=== PATIENT | male | born 1980 | race Two or more races ===

== ENCOUNTER → 2024-04-29 | Emergency (ER) | payer OTHER ==
[~2024-04-29] VITALS: Ht 172.7 cm; Wt 68.0 kg
[~2024-04-29] MED LIST: CEFTRIAXONE SODIUM 1,000 MG VIAL IM STA; KETOROLAC TROMETHAMINE 30 MG VIAL IM STA; KETOROLAC TROMETHAMINE 60 MG VIAL IM ONE; KETOROLAC TROMETHAMINE 60 MG VIAL IM SCH; KETOROLAC TROMETHAMINE 60 MG VIAL IM STA; TETANUS & DIPHTHERIA TOX,ADULT 0.5 ML VIAL IM STA; ZOLOFT20 MG/1 ML PO
[2024-04-29 11:57] LABS: HEMATOCRIT 41.1 % (39.0-48.0); HEMOGLOBIN 13.9 g/dL (13-16.00); MEAN CELL VOLUME 89.9 fL (80.0-100.00); MEAN CORPUSCULAR HEMOGLOBIN 30.3 pg (27.00-32.0); MEAN CORPUSCULAR HGB CONC 33.7 g/dl (32.0-36.0); PLATELET COUNT 289 K/uL (150-450); RED BLOOD COUNT 4.58 M/uL (4.00-6.00); RED CELL DISTRIBUTION WIDTH 16.2 % (11.5-14.5)
[2024-04-29 12:07] LABS: URINE APPEARANCE Clear; URINE BILIRRUBIN Moderate (NEGATIVE); URINE BLOOD Negative; URINE COLOR Dark Yellow; URINE GLUCOSE Negative (NEGATIVE); URINE LEUKOCYTE Trace; URINE NITRATE Negative; URINE PROTEIN 30 (NEGATIVE)
[2024-04-29 12:11] LABS: URINE BACTERIA 42.8 uL (0.0-1933); URINE EPITHELIAL CELLS 2.4 uL (0.0-38.8); URINE RBC 11.7 uL (0.0-20.8); URINE WBC 2.9 uL (0.0-23.2)
[2024-04-29 12:18] LABS: CALCIUM 9.5 mg/dL (8.5-10.1); CREATININE SERUM 0.84 mg/dL (0.70-1.30); GFR 99.73; POTASSIUM 3.77 mEq/L (3.5-5.1)
[2024-04-29 12:18] LABS: URINE KETONE 40 (NEGATIVE)
[2024-05-01 10:29] LABS: HEMATOCRIT 39.6 % (39.0-48.0); HEMOGLOBIN 13.5 g/dL (13-16.00); MEAN CELL VOLUME 88.4 fL (80.0-100.00); MEAN CORPUSCULAR HEMOGLOBIN 30.2 pg (27.00-32.0); MEAN CORPUSCULAR HGB CONC 34.2 g/dl (32.0-36.0); PLATELET COUNT 291 K/uL (150-450); RED BLOOD COUNT 4.47 M/uL (4.00-6.00); RED CELL DISTRIBUTION WIDTH 15.9 % (11.5-14.5)
[2024-05-01 11:18] LABS: CALCIUM 9.7 mg/dL (8.5-10.1); CREATININE SERUM 0.93 mg/dL (0.70-1.30); GFR 88.68; POTASSIUM 3.87 mEq/L (3.5-5.1)
[2024-05-01 11:49] LABS: PH,URINE 6.5 (5.0-8.0); URINE APPEARANCE Clear; URINE BILIRRUBIN Negative (NEGATIVE); URINE BLOOD Negative; URINE COLOR Dark Yellow; URINE GLUCOSE Negative (NEGATIVE); URINE KETONE Trace (NEGATIVE); URINE LEUKOCYTE Negative; URINE NITRATE Negative; URINE PROTEIN Trace (NEGATIVE)
[2024-05-01 11:50] LABS: URINE EPITHELIAL CELLS 3.2 uL (0.0-38.8); URINE RBC 4.1 uL (0.0-20.8); URINE WBC 1.8 uL (0.0-23.2)
[2024-05-01 11:53] LABS: URINE CAST 0.15 uL (0.0-1.40)
[2024-05-01 12:26] LABS: COCAINE NEGATIVE (NEGATIVE); METHADONE NEGATIVE (NEGATIVE); OPIATES NEGATIVE (NEGATIVE); THC ( Cannabinoids) POSITIVE (NEGATIVE)
== END | disposition home or self-care (01) ==
LOC: ER 08:17
PROVIDERS: Emergency Medicine; General Practice; Internal Medicine
DX: T14.91XA Suicide attempt, initial encounter (principal); S80.811A Abrasion, right lower leg, initial encounter; V03.19XA Pedestrian with other conveyance injured in collision with car, pick-up truck or van in traffic accident, initial encounter; Y93.89 Activity, other specified; Y92.413 State road as the place of occurrence of the external cause; S90.812A Abrasion, left foot, initial encounter; Z20.822 Contact with and (suspected) exposure to COVID-19; M50.322 Other cervical disc degeneration at C5-C6 level
CPT/HCPCS: 36415; 70450; 70490; 71046; 73590; 73620; 96372; 99285; J0696; J1885